=== PATIENT | female | born 1935 | race Native Hawaiian/Other Pacific Islander ===

== ENCOUNTER 2021-09-02 12:36 | Inpatient (IN) | payer MEDICARE, OTHER ==
[~2021-09-02] VITALS: Ht 147.3 cm; Wt 57.2 kg
[2021-09-02] VITALS (22 sets, daily range): BP systolic 103–174; BP diastolic 51–130
[~2021-09-02 12:36] MED LIST: ASPI-1169 PO; ATOR20TA PO; FURO-145 PO; INSU100C10 SQ; INSU100C7 SQ; RENAXA; VALS40TA4 PO
--- NOTE | 2021-09-02 12:42 | NUR ---
EDER 39 FROM HOME AFTER MISSING DIALYSIS FOR A WEEK. BLOOD SUGAR WAS 89 PER EMS. PT BLOOD PRESSURE WAS ELEVATED. BREAHTING IS EVEN AND UNLABORED. PT ATTCHED TO MONITOR. 20G IV ESTABLISH R FOREARM, LABS AND CULTURES DRAWN AND COLLECTED AT BEDSIDE. DR NOONAN AT BEDSIDE.
--- NOTE | 2021-09-02 12:49 | NUR ---
BS 67; DR NOONAN AWARE
[2021-09-02 13:00] LABS: BASOPHILS # (AUTO) 0.1 K/uL (0.0-0.2); BASOPHILS % (AUTO) 0.7 % (0.0-2.0); EOSINOPHILS % (AUTO) 0.4 % (0.0-6.0); HEMATOCRIT 43 % (33-45); HEMOGLOBIN 14.1 g/dL (11.5-14.8); LYMPHOCYTES # (AUTO) 1.5 K/uL (0.8-4.8); LYMPHOCYTES % (AUTO) 21.2 % (20.0-44.0); MEAN CORPUSCULAR HGB CONC 33 g/dl (31.0-36.0); MEAN CORPUSCULAR VOLUME 95 fL (82-100); MONOCYTES # (AUTO) 0.6 K/uL (0.1-1.30); MONOCYTES % (AUTO) 8.5 % (2.0-12.0); NEUTROPHILS % (AUTO) 69.2 % (43.0-81.0); PLATELET COUNT (AUTO) 310 K/uL (150-450); RED BLOOD CELL COUNT(AUTO) 4.51 MIL/uL (4.0-5.2); WHITE BLOOD COUNT (AUTO) 7.3 K/uL (4.3-11.0)
[2021-09-02] MEDS ORDERED: DEXTROSE 50%-WATER 50 ML DISP.SYRIN IVP ONE (13:00)
[2021-09-02] MEDS ORDERED: NTG 50 MG/D5W250 ML BOTTL 250 ML IV PRN (13:00)
[2021-09-02] MEDS ORDERED: DEXTROSE 50%-WATER 50 ML DISP.SYRIN ONE ×2 (13:02→14:32)
[2021-09-02] MEDS ORDERED: NTG 50 MG/D5W250 ML BOTTL 250 ML IV ONE (13:03)
[2021-09-02] MEDS ORDERED: NIFE-35 PO (13:08)
[2021-09-02] MEDS ORDERED: CARV25TA2 PO (13:08)
[2021-09-02] MEDS ORDERED: LOSA25TA27 PO (13:08)
[2021-09-02] MEDS ORDERED: ALLO100T PO (13:08)
[2021-09-02] MEDS ORDERED: ISOS20TA8 PO (13:08)
[2021-09-02] MEDS ORDERED: ATOR10TA PO (13:09)
--- NOTE | 2021-09-02 13:10 | NUR ---
LARY-DAUGHTER [phone].
--- NOTE | 2021-09-02 13:11 | NUR ---
xray at bedside
--- NOTE | 2021-09-02 13:27 | NUR ---
PER DR NOONAN ORDER WITHOLD NTG 50MG/ 250ML IN D5W BOTTLE 250ML
--- NOTE | 2021-09-02 13:44 | NUR ---
PT TAKEN TO RADIOLOGY FOR CT
--- NOTE | 2021-09-02 13:52 | NUR ---
COVID TEST COLLECTED AND SENT
[2021-09-02 13:55] LABS: CALCIUM, SERUM 10.2 mg/dL (8.5-10.1); CARBON DIOXIDE 18 mmol/L (21-32); CHLORIDE 92 mmol/L (98-107); GLUCOSE 83 mg/dL (74-106); SODIUM SERUM 133 mmol/L (136-145); UREA NITROGEN, BLOOD 70 mg/dL (7-18)
[2021-09-02 13:58] LABS: ALANINE AMINOTRANSFERASE 12 U/L (12-78); ALBUMIN 3.7 g/dL (3.4-5.0); ALKALINE PHOSPHATASE 111 U/L (46-116); ASPARTATE AMINOTRANSFERASE 22 U/L (15-37); BILIRUBIN,DIRECT 0.2 mg/dL (0.0-0.2); BILIRUBIN,TOTAL 0.7 mg/dL (0.2-1.0); CREATININE 14.4 mg/dL (0.6-1.3); POTASSIUM 6.4 mmol/L (3.5-5.1); TOTAL PROTEIN, SERUM 8.9 g/dL (6.4-8.2)
[2021-09-02] MEDS ORDERED: ALBUTEROL FS 2.5 MG/3 ML VIAL.NEB ONE (14:06)
[2021-09-02] MEDS ORDERED: ALBUTEROL FS 2.5 MG/3 ML VIAL.NEB NEB ONE (14:30)
[2021-09-02] MEDS ORDERED: DEXTROSE 50%-WATER 50 ML DISP.SYRIN IV ONE (14:30)
[2021-09-02] MEDS ORDERED: SODIUM POLYSTYRENE SULFONATE 15 G/60 ML BOTTLE PO ONE (14:30)
[2021-09-02] MEDS ORDERED: INSULIN REGULAR, HUMAN 100 UNIT/ML 10 ML VIAL IV ONE (14:30)
[2021-09-02] MEDS ORDERED: SODIUM POLYSTYRENE SULFONATE 15 G/60 ML BOTTLE ONE (14:32)
[2021-09-02] MEDS ORDERED: INSULIN REGULAR, HUMAN 100 UNIT/ML 10 ML VIAL ONE (14:32)
[2021-09-02] MEDS ORDERED: ASPIRIN 81 MG TAB.CHEW PO ONE (15:00)
[2021-09-02] MEDS ORDERED: DEXTROSE 50%-WATER 50 ML DISP.SYRIN IV PRN (16:00)
[2021-09-02] MEDS ORDERED: ONDANSETRON HCL/PF 4 MG/2 ML VIAL IVP PRN (16:00)
[2021-09-02] MEDS ORDERED: ACETAMINOPHEN 325 MG TABLET PO PRN (16:00)
--- NOTE | 2021-09-02 16:10 | NUR ---
ULTRASOUND AT BEDSIDE
--- NOTE | 2021-09-02 16:30 | NUR ---
ROOM GIVEN 256
[2021-09-02 16:31] LABS: LYMPHOCYTES % (MANUAL) 20 % (16-48); MONOCYTES % (MANUAL) 7 % (0-11.0); NEUTROPHILS % (MANUAL) 73 (42-76)
--- NOTE | 2021-09-02 17:03 | NUR ---
REPORT GIVEN TO TODD FOR KIKI
--- NOTE | 2021-09-02 17:08 | NUR ---
PT ARRIVED IN ICU AT 1708 VIA GURNEY FROM ER. PT IS ON 3L NC. PT IS LETHARGIC BUT ANSWERS SIMPLE YES AND NO QUESTIONS. PT IS SCHEDULED FOR STAT DIALYSIS. PT CHECKED ON FREQUENTLY BY NURSING STAFF.
--- NOTE | 2021-09-02 17:09 | NUR ---
1708 ASSESSMENT UNABLE TO BE EDITED, CORRECTED PUPIL RESPONSE IS ON 1709 ASSESSMENT. Addendum: 09/03/21 at 0801 by MORA VILLA RN DISREGARD NOTE, ASSESSMENT CORRECTED
[2021-09-02] MEDS: BLOOD SUGAR DIAGNOSTIC 1 EACH STRIP IN SCH ×2 (18:48→21:05)
[2021-09-02] MEDS: HEPARIN SODIUM, PORCINE 5000 UNITS/1 ML VIAL SQ SCH ×2 (18:49→19:23)
--- NOTE | 2021-09-02 19:30 | NUR ---
END OF SHIFT NOTE: DIALYSIS IS STARTING NOW. NO SIGNIFICANT EVENTS SINCE ARRIVING ON UNIT. PT STATES SHE IS ANURIC.
--- NOTE | 2021-09-02 20:30 | NUR ---
ICU/CUBE MACHINE TENDER DAUGHTER LARY HARRIS GAVE CONSENT FOR HD, . RN MIKE Figueroa COSIGNED THIS CONSENT.
--- NOTE | 2021-09-02 21:00 | NUR ---
ICU/COLLAR TURNER TROPONIN 0.581 IS ELEVATED, CALLED SILAS. NO ORDERS RECIEVED. 0100 PT HAS ANOTHER TROPONIN. PT IS ON HEPARIN EVERY 12 HOURS. WILL CONTINUE TO MONITOR THIS PT.
--- NOTE | 2021-09-02 23:00 | NUR ---
ICU/SSAS DEVELOPER HD NURSE FINISHED DIALYSIS, 3 LITERS WAS TAKEN OFF.
[2021-09-03] VITALS (42 sets, daily range): BP systolic 110–181; BP diastolic 39–125
--- NOTE | 2021-09-03 00:45 | NUR ---
ICU/TANK CAR INSPECTOR DAUGHTER LARY HARRIS CALLED ASKED IF SHE CAN VISIT MOTHER AND WHEN SHE COULD VISIT. ALSO IF PT CAN EVALUATE MOTHER FOR WEIGHT BEARING. THIS ORDER WAS PLACED FOR AN EVALUATION.
[2021-09-03 05:03] LABS: BASOPHILS % (AUTO) 0.5 % (0.0-2.0); EOSINOPHILS % (AUTO) 0.3 % (0.0-6.0); HEMATOCRIT 40 % (33-45); HEMOGLOBIN 13.6 g/dL (11.5-14.8); LYMPHOCYTES # (AUTO) 1.5 K/uL (0.8-4.8); LYMPHOCYTES % (AUTO) 28.9 % (20.0-44.0); MEAN CORPUSCULAR HGB CONC 34 g/dl (31.0-36.0); MEAN CORPUSCULAR VOLUME 94 fL (82-100); MONOCYTES # (AUTO) 0.6 K/uL (0.1-1.30); MONOCYTES % (AUTO) 11.2 % (2.0-12.0); NEUTROPHILS % (AUTO) 59.1 % (43.0-81.0); PLATELET COUNT (AUTO) 276 K/uL (150-450); RED BLOOD CELL COUNT(AUTO) 4.29 MIL/uL (4.0-5.2); WHITE BLOOD COUNT (AUTO) 5.1 K/uL (4.3-11.0)
[2021-09-03 05:08] LABS: CALCIUM, SERUM 9.9 mg/dL (8.5-10.1); CARBON DIOXIDE 24 mmol/L (21-32); CHLORIDE 93 mmol/L (98-107); GLUCOSE 98 mg/dL (74-106); MAGNESIUM 2.6 mg/dL (1.8-2.4); PHOSPHORUS 6.9 mg/dL (2.5-4.9); POTASSIUM 4.8 mmol/L (3.5-5.1); SODIUM SERUM 134 mmol/L (136-145); UREA NITROGEN, BLOOD 34 mg/dL (7-18)
[2021-09-03 05:17] LABS: CHOLESTEROL 447 mg/dL (<200); HDL CHOLESTEROL 48 mg/dL (40-60); LDL 325 mg/dL (0-99); TRIGLYCERIDES 168 mg/dL (30-150)
[2021-09-03 05:32] LABS: CREATININE 9.5 mg/dL (0.6-1.3)
--- NOTE | 2021-09-03 05:33 | NUR ---
ICU/SUPERVISOR TWISTING DEPARTMENT CREATININE-9.45, PT IS GETTING HD.
[2021-09-03] MEDS: BLOOD SUGAR DIAGNOSTIC 1 EACH STRIP IN SCH ×4 (06:39→21:59)
--- NOTE | 2021-09-03 07:30 | NUR ---
OPENING NOTE: REPORT RECEIVED FROM FEDERICO SINCLAIR. PER REPORT PT HAD A FAIRLY UNEVENTFUL SHIFT. PT'S BP CONTINUES TO BE ELEVATED THIS AM, SBP 150'S-170'S, DR WASSERMAN AWARE. PT FOLLOWS COMMANDS, APPEARS TO BE SLIGHTLY CONFUSED AT THIS TIME ALTHOUGH ANSWERS SIMPLE QUESTIONS APPROPRIATELY. PT STATES SHE EATS SOFT FOOD AND TAKES PER PILLS CRUSHED. PT CHECKED ON HOURLY AND PRN BY NURSING STAFF.
[2021-09-03] MEDS: CARVEDILOL 3.125 MG TABLET PO SCH ×2 (09:25→21:17)
[2021-09-03] MEDS: hydrALAZINE HCL 50 MG TABLET PO SCH ×3 (09:25→18:04)
[2021-09-03] MEDS: NITROGLYCERIN 30 GM TUBE TP SCH ×2 (09:26→21:17)
[2021-09-03] MEDS: HEPARIN SODIUM, PORCINE 5000 UNITS/1 ML VIAL SQ SCH ×2 (09:27→21:18)
--- NOTE | 2021-09-03 16:52 | NUR ---
1545 DURING DIALYSIS PT BECAME UNRESPONSIVE, HR 36, BP 85/35. DIALYSIS STOPPED, NO . IMMEDIATELY PT BECAME RESPONSIVE AND VOMITED, HR RETURNED TO BASELINE AT 86, BP RETURNED TO 130/67. MEDICAL RECORDS SPECIALIST JOE NOTIFIED DR. RAMEY. [address] WASSERMAN NOTIFIED OF EVENTS AND THAT TRANSFER TO MED/SURG CANCELLED. DR. ANILA SANDERS. RAYMUNDO NURSING SILVER SOLUTION MIXER NOTIFIED OF CANCELLED TRANSFER. 163 PT'S DAUGHTER LARY CALLED, RN NOTIFIED HER OF EVENTS. 1646 DR. HIGH CALLED BACK AND WAS NOTIFIED OF EVENTS. Addendum: 09/03/21 at 1709 by MORA VILLA RN SENTENCE INCOMPLETE ABOVE, SHOULD READ "DIALYSIS STOPPED, NO AMOUNT REMOVED."
[2021-09-03] MEDS: INSULIN REGULAR, HUMAN 100 UNIT/ML 3 ML VIAL SQ PRN ×2 (18:05→22:00)
--- NOTE | 2021-09-03 19:26 | NUR ---
END OF SHIFT NOTE: AFTER EVENT DURING DIALYSIS PT IS ALERT OX3, COOPERATIVE. PT WILL STAY IN ICU OVERNIGHT PER MD ORDERS
[2021-09-04] VITALS (23 sets, daily range): BP systolic 103–168; BP diastolic 47–92
[2021-09-04 05:18] LABS: BASOPHILS % (AUTO) 0.6 % (0.0-2.0); EOSINOPHILS % (AUTO) 1.1 % (0.0-6.0); HEMATOCRIT 40 % (33-45); HEMOGLOBIN 12.8 g/dL (11.5-14.8); LYMPHOCYTES # (AUTO) 1.9 K/uL (0.8-4.8); LYMPHOCYTES % (AUTO) 36.6 % (20.0-44.0); MEAN CORPUSCULAR HGB CONC 33 g/dl (31.0-36.0); MEAN CORPUSCULAR VOLUME 95 fL (82-100); MONOCYTES # (AUTO) 0.8 K/uL (0.1-1.30); MONOCYTES % (AUTO) 14.8 % (2.0-12.0); NEUTROPHILS # (AUTO) 2.5 K/uL (1.8-8.9); NEUTROPHILS % (AUTO) 46.9 % (43.0-81.0); PLATELET COUNT (AUTO) 292 K/uL (150-450); RED BLOOD CELL COUNT(AUTO) 4.15 MIL/uL (4.0-5.2); WHITE BLOOD COUNT (AUTO) 5.3 K/uL (4.3-11.0)
[2021-09-04 05:39] LABS: ALANINE AMINOTRANSFERASE 9 U/L (12-78); ALKALINE PHOSPHATASE 84 U/L (46-116); ASPARTATE AMINOTRANSFERASE 14 U/L (15-37); BILIRUBIN,TOTAL 0.4 mg/dL (0.2-1.0); CALCIUM, SERUM 9.7 mg/dL (8.5-10.1); CARBON DIOXIDE 25 mmol/L (21-32); CHLORIDE 91 mmol/L (98-107); GLUCOSE 95 mg/dL (74-106); MAGNESIUM 2.3 mg/dL (1.8-2.4); PHOSPHORUS 6.8 mg/dL (2.5-4.9); POTASSIUM 4.5 mmol/L (3.5-5.1); SODIUM SERUM 133 mmol/L (136-145); TOTAL PROTEIN, SERUM 8.1 g/dL (6.4-8.2); UREA NITROGEN, BLOOD 34 mg/dL (7-18)
[2021-09-04 05:43] LABS: CREATININE 9.2 mg/dL (0.6-1.3)
[2021-09-04] MEDS: BLOOD SUGAR DIAGNOSTIC 1 EACH STRIP IN SCH ×4 (06:10→21:24)
--- NOTE | 2021-09-04 07:30 | NUR ---
MEDICAL REPRESENTATIVE AM NOTES REPORT RECEIVED FROM FEDERICO SINCLAIR. ASLEEP, RESPONDS TO NAME AND TOUCH, PERIOD OF CONFUSION, ON 2L O2 BUT PATIENT PREFERS ROOM AIR RIGHT NOW, O2 SAT 94-95%. NOT IN ANY DISTRESS, RESPIRATION UNLABORED. SR HR 80s-90s, DENIES PAIN/ DISCOMFORT. IV ACCESS ON RFA20G AND RT WRIST 20G, BOTH FLUSHES WELL, BOTH SITES CLEAR. PER DECORATING INSPECTOR REPORT, PT SUPPOSED TO BE TRANSFERRED TO MED SURG BUT WHILE HAVING DIALYSIS, PT'S BP AND HR DROPPED AND ALMOST CODED WITH ALOC. PER DR. HIGH, PT TO STAY IN ICU FOR THE NIGHT. POC DISCUSSED, BUT UNABLE TO UNDERSTAND, PT FOR HD TODAY. RENAL SOFT DIET, CRUSHED MEDS. SAFETY MEASURES IN PLACE, BED LOW LOCKED, CALL IGHT WITHIN REACH. WILL CONT TO MONITOR.
[2021-09-04] MEDS: hydrALAZINE HCL 50 MG TABLET PO SCH ×3 (09:06→16:57)
[2021-09-04] MEDS: CARVEDILOL 3.125 MG TABLET PO SCH ×2 (09:06→21:17)
[2021-09-04] MEDS: HEPARIN SODIUM, PORCINE 5000 UNITS/1 ML VIAL SQ SCH ×2 (09:07→21:16)
--- NOTE | 2021-09-04 09:30 | NUR ---
RN NOTES DUE MEDS GIVEN PER DR. HIGH AND DR. RAMEY, MAY TRANSFER TO MED SURG AFTER HD TODAY
--- NOTE | 2021-09-04 12:24 | NUR ---
RN NOTES PATIENT PULLED OUT BOTH OF HER IVs. REINSERTED TO RT AC 22G.
[2021-09-04] MEDS: INSULIN REGULAR, HUMAN 100 UNIT/ML 3 ML VIAL SQ PRN ×2 (12:53→21:23)
--- NOTE | 2021-09-04 18:57 | NUR ---
RN CLOSING NOTES PATIENT IN BED, RESTING, ALERT BUT WITH PERIODS OF CONFUSION. ON 2L O2 BUT PATIENT PREFERS ROOM AIR RIGHT NOW, O2 SAT 94-95%. NOT IN ANY DISTRESS, RESPIRATION UNLABORED. SR HR 80s, DENIES PAIN/ DISCOMFORT. IV ACCESS ON RT AC 22G, FLUSHES WELL, SITE CLEAR. RENAL SOFT DIET, CRUSHED MEDS. ALL NEEDS MET AT THIS TIME. ASSISTED IN TURNING AND REPOSITIONING EVERY 2 HOURS. PM CARE DONE EARLIER. BEDREST. SAFETY MEASURES IN PLACE, BED LOW LOCKED, CALL LIGHT WITHIN REACH. WILL ENDORSE TO NEXT SHIFT FOR KIKI. PATIENT FOR TRANSFER TO MED SURG ONCE HD IS COMPETED. ROOM AND BED NUMBER PER CLIENT CARE MANAGER.
--- NOTE | 2021-09-04 21:35 | NUR ---
PRODUCTION TECH PT TRANSFERRED TO 311-1. UPDATED GIVEN TO DAUGHTER.
--- NOTE | 2021-09-04 21:40 | NUR ---
MS CRUISE AGENT NOTE PATIENT RECEIVED FROM ICU IN STABLE CONDITION, PATIENT ALERT/ORIENTED X 2, PT DENIES PAIN OR DISCOMFORT AT THIS TIME. PATIENT STABLE ON RA, NO S/S OF DISTRESS OR SOB NOTED, BREATHING EVEN AND UNLABORED. PATIENT VITAL SIGNS WNL. IV ACCESS ON RIGHT AC #22G INTACT AND SALINE LOCKED. LEFT ARM AV SHUNT NOTED. SCD'S ON PATIENT BILATERAL LEGS. DEMONSTRATED TO PATIENT HOW TO USE CALL LIGHT AND REMOTE CONTROL. SAFETY MEASURES IN PLACE: CALL LIGHT WITHIN REACH, SIDE RAILS UP X 3, BED LOCKED IN LOW POSITION, BED ALARM ON. WILL CONTINUE TO MONITOR PATIENT
[2021-09-05] MEDS: BLOOD SUGAR DIAGNOSTIC 1 EACH STRIP IN SCH ×3 (07:02→17:04)
--- NOTE | 2021-09-05 07:20 | NUR ---
RN NOTES PATIENT IN BED RESTING, AWAKE AND VERBALLY RESPONSIVE. ALERT/ORIENTED X2, THAI/TAGALOG SPEAKER, ABLE TO MAKE NEEDS KNOWN. BREATHING EVEN AND UNLABORED. NO COMPLAINT OF PAIN NOR DISCOMFORT AT THIS TIME. SAFETY MEASURES IN PLACE: CALL LIGHT WITHIN REACH, SIDE RAILS UP X 3, BED LOCKED IN LOW POSITION, BED ALARM ON. WILL CONTINUE TO MONITOR.
--- NOTE | 2021-09-05 07:21 | NUR ---
MS RN CLOSING NOTE PATIENT AWAKE IN BED, ALERT/ORIENTED X 2, PT ABLE TO MAKE NEEDS KNOWN. PT STABLE ON RA, NO S/S OF DISTRESS OR SOB NOTED, BREATHING EVEN AND UNLABORED. NO SIGNIFICANT CHANGES THROUGHOUT SHIFT, PT SLEPT THROUGH THE NIGHT. SAFETY MEASURES IN PLACE: CALL LIGHT WITHIN REACH, SIDE RAILS UP X 3, BED LOCKED IN LOW POSITION, BED ALARM ON. ENDORSED TO DAY SHIFT NURSE FOR CONTINUITY OF CARE
[2021-09-05 07:52] LABS: BASOPHILS % (AUTO) 0.8 % (0.0-2.0); EOSINOPHILS % (AUTO) 1.3 % (0.0-6.0); HEMATOCRIT 42 % (33-45); HEMOGLOBIN 13.5 g/dL (11.5-14.8); LYMPHOCYTES # (AUTO) 1.8 K/uL (0.8-4.8); LYMPHOCYTES % (AUTO) 38.5 % (20.0-44.0); MEAN CORPUSCULAR HGB CONC 32 g/dl (31.0-36.0); MEAN CORPUSCULAR VOLUME 95 fL (82-100); MONOCYTES # (AUTO) 0.7 K/uL (0.1-1.30); MONOCYTES % (AUTO) 14.6 % (2.0-12.0); NEUTROPHILS # (AUTO) 2.1 K/uL (1.8-8.9); NEUTROPHILS % (AUTO) 44.8 % (43.0-81.0); PLATELET COUNT (AUTO) 305 K/uL (150-450); WHITE BLOOD COUNT (AUTO) 4.8 K/uL (4.3-11.0)
[2021-09-05 08:00] VITALS: BP 160/67
[2021-09-05 08:16] LABS: ALANINE AMINOTRANSFERASE 9 U/L (12-78); ALBUMIN 3.2 g/dL (3.4-5.0); ALKALINE PHOSPHATASE 85 U/L (46-116); ASPARTATE AMINOTRANSFERASE 14 U/L (15-37); BILIRUBIN,TOTAL 0.5 mg/dL (0.2-1.0); CALCIUM, SERUM 9.8 mg/dL (8.5-10.1); CARBON DIOXIDE 22 mmol/L (21-32); CHLORIDE 92 mmol/L (98-107); CREATININE 6.1 mg/dL (0.6-1.3); GLUCOSE 106 mg/dL (74-106); MAGNESIUM 2.2 mg/dL (1.8-2.4); PHOSPHORUS 5.1 mg/dL (2.5-4.9); POTASSIUM 3.9 mmol/L (3.5-5.1); SODIUM SERUM 132 mmol/L (136-145); TOTAL PROTEIN, SERUM 8.3 g/dL (6.4-8.2); UREA NITROGEN, BLOOD 17 mg/dL (7-18)
[2021-09-05] MEDS: CARVEDILOL 3.125 MG TABLET PO SCH (08:26)
[2021-09-05] MEDS: hydrALAZINE HCL 50 MG TABLET PO SCH ×3 (08:26→17:05)
[2021-09-05] MEDS: HEPARIN SODIUM, PORCINE 5000 UNITS/1 ML VIAL SQ SCH (08:27)
[2021-09-05] MEDS: INSULIN REGULAR, HUMAN 100 UNIT/ML 3 ML VIAL SQ PRN ×2 (11:55→17:06)
--- NOTE | 2021-09-05 13:09 | NUR ---
RN NOTES SPOKE W/ LARY DUBOIS (DTR [phone]) AND INFORMED ABOUT PATIENT'S DISCHARGE. PER DTR, SHE WILL TRY TO ARRANGE FOR TRANSPORTATION AND WILL CALL BACK; REQUESTED FOR HOME HEALTH. CALLED [employer] CRIB SUPERVISOR AND INFORMED ABOUT DTR'S PLAN. PER CM, SHE WILL PROVIDE RESOURCE/SET-UP FOR HOME HEALTH IF DTR AGREES.
--- NOTE | 2021-09-05 15:18 | NUR ---
RN NOTES LEFT VOICE MESSAGE TO LARY DTR REGARDING UPDATE ON PATIENT'S TRANSPORTATION, AWAITING CALL BACK.
--- NOTE | 2021-09-05 15:33 | NUR ---
RN NOTES RECEIVED CALL FROM LARY CONNELLY, AND WAS INFORMED THAT TAXONOMIST SPOKE W/ HER REGARDING HOME HEALTH SET-UP. DTR CURRENTLY AWAITING CONFIRMATION FROM HOME HEALTH AND WILL ARRANGE TRANSPORTATION ONCE IT GOES THROUGH.
[2021-09-05 16:00] VITALS: BP 137/66
[2021-09-05 17:05] VITALS: BP 137/66
--- NOTE | 2021-09-05 18:34 | NUR ---
RN NOTES PER CM NOTES, [facility] TRANSPORT SET-UP BUT NO ETA ON NOTES.
--- NOTE | 2021-09-05 18:49 | NUR ---
RN NOTES PATIENT CURRENTLY IN BED, DOZING INTERMITTENTLY, ABLE TO BE AWAKENED. BREATHING EVEN AND UNLABORED, TOLERATING ROOM AIR. IV LINE REMOVED BY PATIENT, NO BLEEDING NOTED. FOR DISCHARGE TO HOME TODAY, AWAITING TRANSPORTATION. SAFETY MEASURES MAINTAINED. WILL ENDORSE TO ELECTRIC DEICER INSPECTOR RN FOR KIKI.
== END 2021-09-05 19:45 | disposition home health service (06) | DRG 280 ==
LOC: ER 12:43 → ICU 16:47 → MED 09-04 21:38
PROVIDERS: ADMIT Nurse Practitioner Acute Care
PROC: 5A1D70Z Performance of Urinary Filtration, Intermittent, Less than 6 Hours Per Day (ICD-10-PCS; principal; 2021-09-02)
DX: I21.4 Non-ST elevation (NSTEMI) myocardial infarction (principal); N18.6 End stage renal disease; I16.1 Hypertensive emergency; G93.40 Encephalopathy, unspecified; E87.1 Hypo-osmolality and hyponatremia; I12.0 Hypertensive chronic kidney disease with stage 5 chronic kidney disease or end stage renal disease; E87.5 Hyperkalemia; Z99.2 Dependence on renal dialysis; E11.22 Type 2 diabetes mellitus with diabetic chronic kidney disease; E78.5 Hyperlipidemia, unspecified; I25.10 Atherosclerotic heart disease of native coronary artery without angina pectoris; Z90.5 Acquired absence of kidney; E83.52 Hypercalcemia; E11.649 Type 2 diabetes mellitus with hypoglycemia without coma; Z79.4 Long term (current) use of insulin; Z20.822 Contact with and (suspected) exposure to COVID-19
CPT/HCPCS: 36415; 70450-TC; 71045-TC; 80048-TC; 80053-TC; 80061-TC; 80076-TC; 82962-TC; 83735-TC; 83970; 84100-TC; 84132-TC; 84484-TC; 85025-TC; 86706; 87081-TC; 87340; 90935-TC; 93307-TC; 97112-TC; 97116-TC; 97530-TC; C9803; G0378; J1644; J1815; J3490; J7030